=== PATIENT | female | born 1995 | race Caucasian/White ===

== ENCOUNTER 2019-02-19 14:58 | Emergency (ER) | payer OTHER ==
[~2019-02-19] VITALS: Ht 165.1 cm; Wt 81.6 kg
[2019-02-19 15:03] VITALS: BP 115/68
--- NOTE | 2019-02-19 15:24 | NUR ---
PT BIB SELF C/O ABSCESS X2 WEEKS. PT REPORTS NON-RADIAITNG STINGING/BURNING PAIN AT 8/10 THAT INCREASES W/ TOUGH. + ODORUS THICK GREEN DISCHARGE. 4 ABCESS PRESENT IN RT AXILLARY. - FEVER, - N/V. VSS. ER MD TO SEE PT. MEDHX:DENIES RX:DENIES
[2019-02-19] MEDS ORDERED: LIDOCAINE MPF 1% 10 MG/ML VIAL INJ ONE (15:30)
--- NOTE | 2019-02-19 15:36 | NUR ---
LIUDOCAINE AT BEDSIDE FOR PA BEDSIDE PROCEDURE
--- NOTE | 2019-02-19 17:02 | NUR ---
PROVIDED WOUND CARE AFTER I&D, CLEANED OFF AREA USING STERILE SALINE APPLIED NON ADHERANT DRESSING AND 4X4 BANDAGE TO RIGHT AXILLARY
[2019-02-19 17:08] VITALS: BP 124/65
--- NOTE | 2019-02-19 17:08 | NUR ---
Patient discharged with v/s stable. Written and verbal after care instructions given and explained. Patient alert, oriented and verbalized understanding of instructions. Ambulatory with steady gait. All questions addressed prior to discharge. ID band removed. Patient advised to follow up with PMD. Rx of IBUPROFEN, BACTRIM AND KEFLEX given. Patient educated on indication of medication including possible reaction and side effects. Opportunity to ask questions provided and answered.
== END 2019-02-19 17:08 | disposition home or self-care (01) ==
LOC: MED 14:58
DX: L02.411 Cutaneous abscess of right axilla (principal); L03.111 Cellulitis of right axilla
CPT/HCPCS: 10060; 99283; J2001